=== PATIENT | female | born 1995 | race Two or more races ===

== ENCOUNTER 2020-07-27 02:33 | Observation (INO) | payer OTHER ==
[~2020-07-27] VITALS: Ht 152.4 cm; Wt 82.6 kg
[2020-07-27 04:57] VITALS: BP 127/64
== END 2020-07-27 04:33 | disposition home or self-care (01) ==
LOC: EMS 02:39 → 4S 03:24
PROVIDERS: ADMIT Obstetrics & Gynecology; ATTEND Obstetrics & Gynecology
DX: O26.893 Other specified pregnancy related conditions, third trimester (principal); O99.891 Other specified diseases and conditions complicating pregnancy; R10.30 Lower abdominal pain, unspecified; R33.9 Retention of urine, unspecified; Z3A.34 34 weeks gestation of pregnancy
CPT/HCPCS: 59025; 99219